=== PATIENT | female | born 1945 | race Two or more races ===

== ENCOUNTER 2021-01-27 10:45 | Inpatient (IN) | payer OTHER ==
[~2021-01-27] VITALS: Ht 165.1 cm; Wt 66.7 kg
[2021-01-27] MEDS ORDERED: METFORMIN HCL1000 M2 PO (13:15)
[2021-01-27] MEDS ORDERED: ACTOS45 MG PO (13:15)
[2021-01-27] MEDS ORDERED: GLIPIZIDE XL10 MG PO (13:16)
[2021-01-27] MEDS ORDERED: LIPITOR20 MG PO (13:16)
[2021-01-27] MEDS ORDERED: VOLTAREN100 GM (13:16)
[2021-02-03] MEDS ORDERED: FLONASE16 GM (09:03)
[2021-02-03] MEDS ORDERED: ALLERGY RELIEF180 MG (09:03)
[2021-02-03] MEDS ORDERED: FAMOTIDINE40 MG (09:03)
[2021-02-03] MEDS ORDERED: GABAPENTIN300 M2 (09:04)
[2021-02-03] MEDS ORDERED: DICLOFENAC SODI50 MG (09:04)
[2021-02-03] MEDS ORDERED: TIZANIDINE HCL4 M1 (09:04)
[2021-02-03] MEDS ORDERED: IBANDRONATE SO150 MG (09:04)
[2021-02-03] MEDS ORDERED: DIAZEPAM5 MG PO (12:07)
[2021-02-03] MEDS ORDERED: COLACE100 MG PO (12:07)
[2021-02-03] MEDS ORDERED: MEDROLPACK PO (12:07)
[2021-02-03] MEDS ORDERED: NEURONTIN800 MG PO (12:07)
[2021-02-03] MEDS ORDERED: PERCOCET 5-3251 EACH PO (12:07)
[2021-02-03] MEDS ORDERED: AMOX-CLAV 875-1 EAC1 PO (12:08)
[2021-02-03] MEDS ORDERED: ZOFRAN8 MG PO (12:09)
== END 2021-02-04 12:55 | disposition home or self-care (01) | DRG 458 ==
LOC: SURH 02-02 10:45 → PED 02-03 06:47 → O/R 02-03 06:47 → SURH 02-03 10:45 → PED 02-03 15:45
PROVIDERS: ADMIT Orthopaedic Surgery Orthopaedic Surgery of the Spine; ATTEND Orthopaedic Surgery Orthopaedic Surgery of the Spine
PROC: 07DR0ZZ Extraction of Iliac Bone Marrow, Open Approach (ICD-10-PCS; 2021-02-03)
PROC: 3E0U0GB Introduction of Recombinant Bone Morphogenetic Protein into Joints, Open Approach (ICD-10-PCS; 2021-02-03)
PROC: 0SG10A0 Fusion of 2 or more Lumbar Vertebral Joints with Interbody Fusion Device, Anterior Approach, Anterior Column, Open Approach (ICD-10-PCS; principal; 2021-02-03 11:15)
DX: M47.896 Other spondylosis, lumbar region (principal); M41.56 Other secondary scoliosis, lumbar region

== ENCOUNTER 2022-10-12 07:45 | Inpatient (IN) | payer OTHER ==
[~2022-10-12] VITALS: Ht 162.6 cm; Wt 67.1 kg
[~2022-10-12 07:45] MED LIST: ACTOS45 MG PO; ALLERGY RELIEF180 MG; AMOX-CLAV 875-1 EAC1 PO; COLACE100 MG PO; DIAZEPAM5 MG PO; DICLOFENAC SODI50 MG; FAMOTIDINE40 MG; FLONASE16 GM; GABAPENTIN300 M2; GLIPIZIDE XL10 MG PO; IBANDRONATE SO150 MG; LIPITOR20 MG PO; MEDROLPACK PO; METFORMIN HCL1000 M2 PO; NEURONTIN800 MG PO; PERCOCET 5-3251 EACH PO; TIZANIDINE HCL4 M1; VOLTAREN100 GM; ZOFRAN8 MG PO
[2022-10-12] MEDS ORDERED: LIPITOR20 MG PO (10:05)
[2022-10-17] MEDS ORDERED: GABAPENTIN800 M1 (10:40)
[2022-10-17] MEDS ORDERED: ATORVASTATIN CA40 MG (10:40)
[2022-10-18] MEDS ORDERED: BACTRIM DS TAB1 EACH PO (07:42)
[2022-10-18] MEDS ORDERED: INTEGRA PLUS C1 EACH PO (07:42)
[2022-10-18] MEDS ORDERED: XARELTO10 MG PO (07:42)
[2022-10-18] MEDS ORDERED: OXYC1TAB9 PO (07:42)
== END 2022-10-18 12:40 | disposition home or self-care (01) | DRG 470 ==
LOC: O/R 10-16 06:52 → SURG 10-16 07:00 → O/R 10-16 13:46 → SURG 10-16 14:33
PROVIDERS: ADMIT Orthopaedic Surgery Sports Medicine; ATTEND Orthopaedic Surgery Sports Medicine
PROC: 0SRD0J9 Replacement of Left Knee Joint with Synthetic Substitute, Cemented, Open Approach (ICD-10-PCS; principal; 2022-10-16 07:00)
DX: M17.12 Unilateral primary osteoarthritis, left knee (principal); M11.262 Other chondrocalcinosis, left knee; M65.862 Other synovitis and tenosynovitis, left lower leg; E11.9 Type 2 diabetes mellitus without complications; Z79.84 Long term (current) use of oral hypoglycemic drugs

== ENCOUNTER 2022-11-26 01:37 | Emergency (ER) | payer OTHER ==
[~2022-11-26] VITALS: Ht 165.1 cm; Wt 67.1 kg
[~2022-11-26 01:37] MED LIST changes: +ATORVASTATIN CA40 MG; +BACTRIM DS TAB1 EACH PO; +GABAPENTIN800 M1; +INTEGRA PLUS C1 EACH PO; +OXYC1TAB9 PO; +XARELTO10 MG PO
== END 2022-11-26 14:53 | disposition home or self-care (01) ==
LOC: ER 01:37
DX: S80.02XA Contusion of left knee, initial encounter (principal); W01.0XXA Fall on same level from slipping, tripping and stumbling without subsequent striking against object, initial encounter; Y93.89 Activity, other specified; Y92.018 Other place in single-family (private) house as the place of occurrence of the external cause; Z96.652 Presence of left artificial knee joint

== ENCOUNTER 2024-04-02 11:45 | Inpatient (IN) | payer OTHER ==
[~2024-04-02] VITALS: Ht 165.1 cm; Wt 65.8 kg
[2024-04-02 15:56] VITALS: BP 135/75
[2024-04-08] MEDS ORDERED: ENALAPRILAT DIHYDRATE 1.25 MG/ML VIAL IV PRN (10:45)
[2024-04-08] MEDS ORDERED: 0.9 % SODIUM CHLORIDE 1,000 ML IV SCH (10:45)
[2024-04-08] MEDS ORDERED: PROMETHAZINE HCL 50 MG/ML AMPUL IM PRN (10:45)
[2024-04-08] MEDS ORDERED: PERCOCET 5-3251 EACH PO (10:48)
[2024-04-08] MEDS ORDERED: MEDROLPACK PO (10:48)
[2024-04-08] MEDS ORDERED: AMOX-CLAV 875-1 EACH PO (10:49)
[2024-04-08] MEDS ORDERED: GABAPENTIN100 M2 PO (10:49)
[2024-04-08] MEDS ORDERED: COLACE100 MG PO (10:49)
[2024-04-08] MEDS ORDERED: NEURONTIN800 MG PO (10:50)
[2024-04-08] MEDS ORDERED: DOCUSATE SODIUM 100MG CAP PO SCH (13:00)
[2024-04-08] MEDS ORDERED: MORPHINE SULFATE 4 MG,MORPHINE SULFATE 2 MG IV SCH (13:00)
[2024-04-08] MEDS ORDERED: VANCOMYCIN HCL 1,000 MG VIAL ONE ×3 (13:49→21:18)
[2024-04-08] MEDS ORDERED: CEFAZOLIN SODIUM 1,000 MG VIAL ONE (13:50)
[2024-04-08] MEDS ORDERED: FAMOtidine 20 MG TABLET PO SCH (17:00)
[2024-04-08] MEDS ORDERED: METHYLPREDNISOLONE SOD SUCC 125 MG VIAL IV SCH (17:00)
[2024-04-08] MEDS ORDERED: CEFAZOLIN SODIUM 1,000 MG in 0.9 % SODIUM CHLORIDE 50 ML IV SCH (17:00)
[2024-04-08] MEDS ORDERED: METHYLPREDNISOLONE SOD SUCC 125 MG VIAL ONE (17:35)
[2024-04-08] MEDS ORDERED: IOVERSOL 320 MG/ML - 50 ML VIAL IV ONE (17:43)
[2024-04-08] MEDS ORDERED: MORPHINE SULFATE 4 MG/ML VIAL IV ONE ×2 (20:45→21:15)
[2024-04-08 21:00] VITALS: BP 135/75; O2SAT 95
[2024-04-08] MEDS ORDERED: VANCOMYCIN HCL 1,000 MG VIAL IV SCH (21:00)
[2024-04-08] MEDS ORDERED: GABAPENTIN 800 MG TABLET PO SCH (21:00)
[2024-04-08] MEDS ORDERED: DEXTROSE 50 % IN WATER 0.5 G/ML DISP.SYRIN IV PRN (23:00)
[2024-04-08] MEDS ORDERED: INSULIN LISPRO 1,000 UNIT/10 ML UNITS SUBCUTANEO PRN (23:00)
[2024-04-09] MEDS ORDERED: SODIUM CHLORIDE 0.45 % 1,000 ML IV SCH
[2024-04-09 01:10] VITALS: BP 121/68; O2SAT 98
[2024-04-09 04:00] VITALS: BP 148/78; O2SAT 99
[2024-04-09] MEDS ORDERED: OxyCODONE HCL/APAP UD (PERCOCET) PO PRN (06:01)
[2024-04-09 06:49] LABS: HEMATOCRIT 38.5 % (36.0-45.00); HEMOGLOBIN 12.8 g/dL (12.0-15.00); MEAN CELL VOLUME 89.2 fL (80.00-100.00); MEAN CORPUSCULAR HEMOGLOBIN 29.7 pg (27.00-32.0); MEAN CORPUSCULAR HGB CONC 33.2 g/dl (32.0-36.0); PLATELET COUNT 254 K/uL (150-450); RED BLOOD COUNT 4.32 M/uL (4.00-6.00); RED CELL DISTRIBUTION WIDTH 14.5 % (11.5-14.5)
[2024-04-09 07:20] LABS: CALCIUM 9.2 mg/dL (8.5-10.1); CREATININE SERUM 0.69 mg/dL (0.55-1.02); GFR 82.07; POTASSIUM 3.85 mEq/L (3.5-5.1)
[2024-04-09 08:30] VITALS: BP 138/70; O2SAT 97
[2024-04-09] MEDS ORDERED: TAMSULOSIN HCL 0.4 MG CAP PO SCH (09:00)
[2024-04-09] MEDS ORDERED: MetFORMIN HCL 1000 MG TABLET PO SCH (09:00)
[2024-04-09] MEDS ORDERED: GLIPIZIDE 10 MG TABLET PO SCH (09:00)
[2024-04-09] MEDS ORDERED: MetFORMIN HCL 1000 MG TABLET PO STA (09:24)
[2024-04-09] MEDS ORDERED: GLIPIZIDE 10 MG TABLET PO STA (09:25)
[2024-04-09 12:27] VITALS: BP 133/65; O2SAT 98
[2024-04-09 15:30] VITALS: BP 100/56; O2SAT 95
[2024-04-09 20:00] VITALS: BP 123/60; O2SAT 97
[2024-04-10 01:00] VITALS: BP 96/50; O2SAT 100
[2024-04-10 05:00] VITALS: BP 139/81; O2SAT 97
[2024-04-10 08:00] VITALS: BP 128/71; O2SAT 98
[2024-04-10] MEDS ORDERED: GLIPIZIDE 10 MG TABLET PO SCH (09:00)
[2024-04-10] MEDS ORDERED: MetFORMIN HCL 1000 MG TABLET PO SCH (09:00)
== END 2024-04-10 10:33 | disposition home or self-care (01) | DRG 455 ==
LOC: O/R 04-08 09:18 → PED 04-08 09:18 → SURH 04-08 11:45 → PED 04-08 20:37
PROVIDERS: ADMIT Orthopaedic Surgery Orthopaedic Surgery of the Spine; ATTEND Orthopaedic Surgery Orthopaedic Surgery of the Spine
PROC: 0SG3071 Fusion of Lumbosacral Joint with Autologous Tissue Substitute, Posterior Approach, Posterior Column, Open Approach (ICD-10-PCS; 2024-04-08)
PROC: 0SP004Z Removal of Internal Fixation Device from Lumbar Vertebral Joint, Open Approach (ICD-10-PCS; 2024-04-08)
PROC: 0ST40ZZ Resection of Lumbosacral Disc, Open Approach (ICD-10-PCS; 2024-04-08)
PROC: 07DR0ZZ Extraction of Iliac Bone Marrow, Open Approach (ICD-10-PCS; 2024-04-08)
PROC: 4A12X4Z Monitoring of Cardiac Electrical Activity, External Approach (ICD-10-PCS; 2024-04-08)
PROC: XRGD0R7 Fusion of Lumbosacral Joint using Custom-Made Anatomically Designed Interbody Fusion Device, Open Approach, New Technology Group 7 (ICD-10-PCS; principal; 2024-04-08 16:00)
DX: M48.07 Spinal stenosis, lumbosacral region (principal); M43.16 Spondylolisthesis, lumbar region; M54.17 Radiculopathy, lumbosacral region

== ENCOUNTER 2024-04-30 12:57 | Emergency (ER) | payer OTHER ==
[~2024-04-30] VITALS: Ht 165.1 cm; Wt 66.7 kg
[~2024-04-30 12:57] MED LIST changes: +AMOX-CLAV 875-1 EACH PO; +GABAPENTIN100 M2 PO
== END 2024-04-30 16:08 | disposition home or self-care (01) ==
LOC: ER 12:59
DX: Z98.1 Arthrodesis status (principal); L76.34 Postprocedural seroma of skin and subcutaneous tissue following other procedure; E11.9 Type 2 diabetes mellitus without complications; Z79.84 Long term (current) use of oral hypoglycemic drugs